=== PATIENT | female | born 1970 | race Caucasian/White ===

== ENCOUNTER 2018-12-27 18:51 | Inpatient (IN) | payer OTHER ==
[~2018-12-27] VITALS: Ht 170.2 cm; Wt 171.9 kg
[2018-12-27 18:53] VITALS: BP 165/97
[2018-12-27 20:29] LABS: ABSOLUTE NEUTROPHILS 7.4 thou/uL (1.4-8.2); BASOPHILS 0.6 % (0.0-2.0); EOSINOPHILS 0.9 % (0.0-3.0); HEMATOCRIT 37.1 % (37.0-47.0); HEMOGLOBIN 12.1 gm/dL (12.0-15.0); MCH 28.6 pg (26.0-34.0); MCHC 32.7 g/dL (28.0-37.0); MCV 87.5 fL (80.0-100.0); PLATELET COUNT 260 thou/uL (150-400); POLYS 83.5 % (36.0-66.0); RBC 4.23 mil/uL (4.20-5.00); RDW 16.3 % (10.5-14.5); WBC 8.8 thou/uL (4.0-11.0)
[2018-12-27] MEDS ORDERED: ENTRESTO 49 MG1 EACH PO (20:43)
[2018-12-27 20:44] LABS: CALCIUM 9.4 mg/dL (8.5-10.1); INR 1.2; POTASSIUM 3.7 mmol/L (3.5-5.1); PROTIME 12.7 Seconds (9.3-11.4)
[2018-12-27] MEDS ORDERED: ASPIR 8181 MG PO (20:44)
[2018-12-27] MEDS ORDERED: LASIX 80 MG TAB80 MG PO (20:44)
[2018-12-27] MEDS ORDERED: DIUREX MAX50 MG PO (20:44)
[2018-12-27] MEDS ORDERED: TRAZODONE HCL50 MG PO (20:45)
[2018-12-27 20:46] LABS: TROPONIN-I 0.06 ng/mL (<0.06)
[2018-12-27] MEDS ORDERED: AMITRIPTYLINE H25 M2 PO (20:47)
[2018-12-27] MEDS ORDERED: SPIRONOLACTONE25 M1 PO (20:48)
[2018-12-27] MEDS ORDERED: PAXIL10 MG PO (20:49)
[2018-12-27] MEDS ORDERED: LOPRESSOR25 PO (20:49)
[2018-12-27] MEDS ORDERED: FLEXERIL PO (20:49)
[2018-12-27] MEDS ORDERED: BENADRYL25 MG PO (20:50)
[2018-12-27] MEDS ORDERED: COUMADIN 5 MG TA5 M1 PO (20:50)
[2018-12-27] MEDS ORDERED: UNICOMPLEX M TA1 TA1 PO (20:50)
[2018-12-27 21:18] LABS: PCO2 51.8 mmHg (35.0-45.0); pH 7.373 (7.360-7.450)
[2018-12-27 21:19] LABS: BE(vivo) 3.2 mmol/L (-2 to +3); HCO3 29.5 mmol/L (22.0-26.0); PO2 71.9 mmHg (80.0-100.0)
[2018-12-27 21:20] LABS: sO2 93.9 % (92.0-98.0)
[2018-12-27 22:11] VITALS: BP 158/98
[2018-12-27 22:33] VITALS: BP 149/102
[2018-12-27 23:45] VITALS: BP 146/79
--- NOTE | 2018-12-28 00:45 | NUR ---
PATIENT WAS A NEW ADMISSION TO THE UNIT THIS SHIFT. SHE ARRIVED VIA CART FROM THE ER AND WAS TRANSFERRED TO BED WITHOUT INCIDENT. PATIENT IS ALERT AND ORIENTED AND WILL BE ABLE TO PARTICIPATE IN ADMISSION AND CALL APPROPRIATELY FOR NEEDS. NURSE TO COMPLETE ADMISSION AND INITIATE CARE PLAN.
[2018-12-28 04:41] VITALS: BP 156/108
[2018-12-28 04:51] LABS: INR 1.2; PROTIME 12.8 Seconds (9.3-11.4)
[2018-12-28 04:58] VITALS: BP 137/76
[2018-12-28 05:24] LABS: CALCIUM 9.7 mg/dL (8.5-10.1); CHOLESTEROL 137 mg/dL (<200); CREATININE 1.1 mg/dL (0.6-1.0); HDL CHOLESTEROL 49 mg/dL (>40); LDL CHOLESTEROL 75 mg/dL (<100); POTASSIUM 3.3 mmol/L (3.5-5.1); TC:HDL 2.8 Ratio (Not establshd); TRIGLYCERIDE 69 mg/dL (<150); TROPONIN-I 0.06 ng/mL (<0.06); VLDL 14 mg/dL (<40)
[2018-12-28 05:38] LABS: SERUM ASSESSMENT Clear
[2018-12-28 08:02] VITALS: BP 154/96
--- NOTE | 2018-12-28 09:33 | 2DMMODE ---
[facility] [address] [place] [address] 2 D/M-MODE ECHOCARDIOGRAM Name: GERBER BASILIO Room #: 363-P [facility] IN ..#: [id number] Admission: 12/27/18 Attend Phys: Dino Artis MD Discharge: Date of : 74 Date of Service: 12/28/18 0932 Report #: [id number] THIS REPORT FOR: //name// APPROVED REPORT Study performed: 12/28/2018 08:00:15 EXAM: Comprehensive 2D, Doppler, and color-flow Echocardiogram Patient Location: Bedside Room #: 363 Status: routine BSA: 2.65 BP: 137/76 mmHg Other Information Study Quality: Technically Difficult Technically limited study due to body habitus, inability to position patient. Indications Congestive Heart Failure COPD Hypertension/HDD Current tobacco abuse Echo Enhancing Agent Indication: Endocardial border delineation Agent(s) / Amount(s) Used: Optison 3 cc 2D Dimensions RVDd: 55.15 mm IVSd: 11.34 (7-11mm) LVOT Diam: 22.47 (18-24mm) LVDd: 57.93 mm PWd: 13.28 (7-11mm) Ascending Ao: 29.67 (22-36mm) LVDs: 53.59 (25-40mm) Aortic Root: 30.90 mm IVC: 36.00 mm Volumes Left Atrial Volume (Systole) Single Plane 4CH: 91.52 mL Single Plane 2CH: 83.81 mL LA ESV Index: 35.00 mL/m2 Aortic Valve AoV Peak Pawel.: 1.31 m/s [facility] [address] [place] [address] 2 D/M-MODE ECHOCARDIOGRAM Name: GERBER BASILIO Room #: 363-P [facility] IN [facility]#: [id number] Admission: 12/27/18 Attend Phys: Dino Artis MD Discharge: Date of : 74 Date of Service: 12/28/18 0932 Report #: [id number] AO Peak Gr.: 7.23 mmHg LVOT Max P.56 mmHg LVOT Max V: 0.80 m/s PAT Vmax: 2.42 cm2 Mitral Valve E/A Ratio: 2.6 MV Decel. Time: 111.39 ms MV E Max Pawel.: 1.40 m/s MV A Pawel.: 0.53 m/s MV PHT: 32.30 ms IVRT: 83.04 ms Pulmonary Valve PV Peak Pawel.: 0.98 m/s PV Peak Gr.: 3.83 mmHg Tricuspid Valve TR Peak Pawel.: 3.14 m/s RAP Estimate: 15.00 mmHg TR Peak Gr.: 39.49 mmHg PA Pressure: 55.00 mmHg Left Ventricle Left ventricle is mildly dilated. Mild concentric left ventricular hypertrophy. Left ventricular ejection fraction is severely decreased. LVEF is 20-25%. Transmitral Doppler flow pattern suggests restrictive physiology. Right Ventricle Right ventricle is moderately dilated. Right ventricular systolic function is grossly normal. Atria Left atrium is mildly dilated. Right atrium is moderately dilated. Aortic Valve Aortic valve appears grossly normal. No aortic regurgitation is present. There is no aortic valvular stenosis. Mitral Valve Mild mitral annular calcification. Mild mitral regurgitation. No evidence of mitral valve stenosis. Tricuspid Valve The tricuspid valve is normal in structure. Moderate tricuspid regurgitation. PAP is estimated at 55 mmHg. [facility] [email or web address] [address] 2 D/M-MODE ECHOCARDIOGRAM Name: GERBER BASILIO Room #: 363-P [facility] IN .R.#: [id number] Admission: 12/27/18 Attend Phys: Dino Artis MD Discharge: Date of : 74 Date of Service: 12/28/18 0932 Report #: [id number] Pulmonic Valve Pulmonic valve is not well visualized. Mild pulmonic regurgitation visualized. Great Vessels The aortic root is normal in size. IVC is dilated and collapses <50% with inspiration. Pericardium There is no pericardial effusion. <Conclusion> Technically limited study Left ventricular ejection fraction is severely decreased. LVEF is 20-25%. Both atria are dilated. Aortic valve appears grossly normal. No aortic regurgitation or stenosis. Mild mitral annular calcification. Mild mitral regurgitation. Moderate tricuspid regurgitation. Pulmonary artery pressure estimated at 55 mmHg. There is no pericardial effusion. <ELECTRONICALLY SIGNED> By: Cedric Thibodeaux MD, FAC 12/28/18931 1 1 Cedric Thibodeaux MD, FACC /INF
--- NOTE | 2018-12-28 10:52 | NUR ---
RD consult received for obesity. BMI 59=extreme class III obesity. Admit with CHF/COPD exacerbation. + tobacco use, no diabetes however prediabetes indicated and possible need to check A1C. On diuretic therapy, heart healthy restricted diet with fluid restriction. Addressed importance of Na restriction. Pt states does not use salt, however suspect using added sources of sodium. Pt not wanting to discuss diet but stated to leave information for her kids as they do cooking. Pt sitting at bedside, did not want to move to even get back into bed to order meals. States difficulty with mobility at home due to shortness of breath. Low nutrition risk
--- NOTE | 2018-12-28 11:33 | NUR ---
saul faxed facesheet to [facility] and called and left for Linda letting her know fs was faxed.
--- NOTE | 2018-12-28 14:35 | NUR ---
INITIAL ASSESSMENT: Received consult for discharge planning. BEKA reviewed chart and spoke with nursing and attending physician. Pt was admitted from home due to CHF exacerbation/hypoxemia. Pt with hx of COPD, HTN, cardiomyopathy. Pt with BLE edema. Pt listed as patient pay. [employer] account service representative onsite today to meet with pt. Pt's disability and [place] at the end of November. Pt will need to have insurance re-instated. BEKA met with pt at bedside. Introduced role of SW. Pt is alert/orientated x 4. Pt reports she lives at home with family. Pt has two children: ages 26 and 23. Pt and family live in a one-level home. One step to enter. They just recently moved to from [place] on 12/22. Pt states her roller walker is in storage. Pt is on 3L continuous O2 at home. Pt uses [employer]. Pt has not notified [facility] of her moving and she does not have a PCP. Pt states her plan is to return home. BEKA faxed face sheet to [facility] to notify of pt's move and new address. PT/OT ordered to evaluate pt for discharge needs. BEKA is following to assist as needed with discharge planning.
[2018-12-28] MEDS ORDERED: SPIRIVA INH (14:47)
[2018-12-28] MEDS ORDERED: IPRAT-ALBUT 0.5-3 ML (14:52)
[2018-12-28 15:57] VITALS: BP 146/93
[2018-12-28 19:35] VITALS: BP 137/88
[2018-12-29 04:22] VITALS: BP 133/74
[2018-12-29 05:31] LABS: INR 1.3; PROTIME 13.3 Seconds (9.3-11.4)
[2018-12-29 05:43] LABS: CALCIUM 9.3 mg/dL (8.5-10.1); POTASSIUM 3.8 mmol/L (3.5-5.1)
--- NOTE | 2018-12-29 07:32 | NUR ---
PATIENT IS PROGRESSING SLOWLY IN HER CARE PLAN. VITAL SIGNS STABLE WITH PATIENT HAVING NO COMPLAINTS OF PAIN OR NAUSEA. PATIENT DID COMPLAIN OF CRAMPING WHICH WAS EFFECTIVELY TREATED WITH MEDICATION AND POSITIONING. FULLY ORIENTED, PATIENT IS ABLE TO CALL APPROPRIATELY FOR NEEDS BUT IS OFTEN NON COMPLIANT WITH CARE PLAN. MULTIPLE REQUESTS FOR FLUIDS OVER HER ALLOTTED RESTRICTION. BREATHING STABLE ON OXYGEN EVIDENCED BY ASSESSMENT AND SPOT OXYGENATION CHECKS. UP MULTIPLE TIMES TO BEDSIDE COMMODE WITH ASSISTANCE INCIDENT FREE. CONTINUE PLAN OF CARE.
[2018-12-29 07:38] VITALS: BP 151/85
--- NOTE | 2018-12-29 11:13 | HC ---
[facility] [place] [address] [place] [address] CONSULTATION Name: GERBER BASILIO Room #: 363-P ADM IN M.R.#: [id number] Admission: 12/27/18 Attend Phys: Dino Artis MD Discharge: Date of : 74 Report #: [id number] THIS REPORT FOR: //name// CC: Dino Artis [facility] physician/PCP PULMONARY CONSULTATION REFERRING PHYSICIAN: Dr. Artis. REASON FOR REFERRAL: Dyspnea, hypoxia. HISTORY OF PRESENT ILLNESS: The patient is a 48-year-old white female who presents to the ED with progressive dyspnea. She was found to be hypoxic. A pulmonary consultation was requested. The patient is originally from [place], [place]. She has known history of cardiomyopathy, COPD with oxygen dependent, hypertension and past history of CVA. She was in her usual state of health until for the past few days, she has noticed increasing lower extremity edema and dyspnea. She complained of chest discomfort as an elephant sitting on her chest. Chest pain radiated to the upper back. She notes that his lower extremity edema started about a week ago. Otherwise, denies any recent febrile illness, sore throat, productive cough, nausea, vomiting, diarrhea. PAST MEDICAL HISTORY: As mentioned above including history of heart disease, not specified, hypertension, questionable history of DVT, CVA with questionable thrombus. PAST SURGICAL HISTORY: Status post bilateral tubal ligation, hysterectomy. ALLERGIES: PENICILLIN, WHICH CAUSES HIVES. SHE IS ALSO ALLERGIC TO BEE STINGS, HONEY, BROCCOLI, CAULIFLOWER, DUST. HOME MEDICATIONS: List reviewed, this includes Elavil 25 mg once a day, Entresto 49 mg/51 mg once a day, Lasix 80 mg once a day, aspirin 81 mg once a day, Diurex 50 mg once a day, trazodone 50 mg once a day, spironolactone 25 mg once a day, Paxil 40 mg once a day, Lopressor 25 mg p.o. b.i.d., Benadryl 25 mg p.o. p.r.n., multivitamins once a day, Coumadin 5 mg once a day. FAMILY HISTORY: Notable for diabetes, heart disease, vascular disease. Mother at the age of 42 due to myocardial infarction along with CVA. SOCIAL HISTORY: She does smoke about a pack a day. She denies any alcohol abuse. [address] [address] CONSULTATION Name: GERBER BASILIO Room #: 363-P [facility] IN ..#: [id number] Admission: 12/27/18 Attend Phys: Dino Artis MD Discharge: Date of : 74 Report #: [id number] REVIEW OF SYSTEMS: As mentioned above, otherwise a 10-point system review negative. She states that she was evaluated for sleep apnea, though the test was nonconclusive a few years ago. PHYSICAL EXAMINATION: GENERAL: She is awake, alert, appears mild to moderately dyspneic. VITAL SIGNS: Temperature is 97.7 degrees Fahrenheit, pulse is 93, respiratory rate is 20, blood pressure 146/93 mmHg, saturation is 99%. HEENT: Normocephalic, atraumatic. NECK: Supple, without lymphadenopathy or thyromegaly. CHEST: Breath sounds are fair with a few scattered crackles in the bases. No obvious wheezes. CARDIOVASCULAR: Normal S1, S2. No murmurs or gallop. There is no JVD. There is no carotid bruit. Pulses are 2+/4+ bilaterally. BREASTS: Deferred. ABDOMEN: Moderately obese, soft, nontender, no organomegaly or masses felt. GENITOURINARY: Deferred. RECTAL: Deferred. EXTREMITIES: With 2-3+ bilateral pretibial edema, mild erythematous changes are noted in the lower extremities. NEUROLOGIC: Grossly intact. LABORATORY DATA: Portable chest x-ray shows cardiomegaly, mild increase in pulmonary vascular markings. Echocardiogram shows ejection fraction of 20-25%, pulmonary artery pressure measuring 55 mmHg, mild mitral regurgitation, both atria are dilated. BNP is 7500. Electrolytes are normal, creatinine is 1.0. WBC is 8800, hemoglobin is normal. Troponin 0.06. Arterial blood gas revealed pH 7.37, pCO2 of 51 and pO2 of 71 on 3 liters of O2. IMPRESSION: 1. Soxay-er-rueahat hypercapnic hypoxic respiratory failure in this 48-year-old white female. She has had increasing edema over the past week with increasing dyspnea. Echocardiogram showed ejection fraction approximately 20%. Etiology probably related to underlying acute on chronic systolic heart failure with underlying chronic obstructive pulmonary disease. 2. Chronic obstructive pulmonary disease, severity not defined, continuing to smoke. 3. Hypertension. 4. Questionable history of deep venous thrombosis along with questionable history of cerebrovascular accident, had been on chronic anticoagulation. There is also history of possible cardiac thrombus. 5. Medical noncompliance. RECOMMENDATION: Agree with current care, bronchodilators, corticosteroids, agree with diuresis. Wean O2 for saturation 90%. The patient will benefit from outpatient sleep study evaluation. [address] [address] CONSULTATION Name: GERBER BASILIO Room #: 363-P ADM IN .R.#: [id number] Admission: 12/27/18 Attend Phys: Dino Artis MD Discharge: Date of : 74 Report #: [id number] DVT and GI prophylaxis recommended. Thank you for the consultation. <ELECTRONICALLY SIGNED> By: Yan Singh MD 12/29/18 1113 [id number] [id number] Yan Singh MD /nt
[2018-12-29 12:00] VITALS: BP 130/79
--- NOTE | 2018-12-29 15:25 | NUR ---
BEKA reviewed chart and spoke with nursing and attending physician. Pt is slowly progressing towards goals for discharge. Pt remains on IV lasix and IV steroids. Therapy evaluated pt. Plan is for pt to discharge home when medically stable. BEKA discussed case with [employer], who states that pt will have to pay privately for home O2 until her insurance is re-instated. Pt had [place]icaid. BEKA notified [facility] liaison. No weekend discharge planned. BEKA is following to assist as needed with discharge planning.
[2018-12-29 16:27] VITALS: BP 99/69
--- NOTE | 2018-12-29 17:57 | EKG ---
[address] [address] ELECTROCARDIOGRAM REPORT Name: GERBER BASILIO Room #: 363-P ADM IN M.R.#: [id number] Admission: 12/27/18 Attend Phys: Dino Artis MD Discharge: Date of : 74 Report #: [id number] THIS REPORT FOR: //name// [facility] ED Test Date: 2018-12-27 Test Time: 20:35:09 Pat Name: GERBER BASILIO Department: Room: 363 Gender: F Swimming Pool Service Technician: rowdy : 1970 Requested By: Maury Montilla Order Number: [id number] MD: Cedric Thibodeaux Measurements Intervals [place] Rate: 103 P: 51 MT: 170 QRS: -2 QRSD: 126 T: QT: 365 QTc: 478 Interpretive Statements Sinus tachycardia Ventricular premature complex Probable left atrial enlargement Nonspecific intraventricular conduction delay Poor R wave progression No previous ECG available for comparison Electronically Signed On 12-29-2018 17:56:56 CDT by Cedric Thibodeaux [email or web address] <ELECTRONICALLY SIGNED> By: Cedric Thibodeaux MD, [facility] 12/29/18 1756 34 Cedric Thibodeaux MD, FACC /EPI
[2018-12-29 19:09] VITALS: BP 113/80; BP 13/80
--- NOTE | 2018-12-30 03:06 | NUR ---
patient is alert and oriented. patient is up time one with walker and oxygen. patient is on 3l nc. patient uses bsc. patient is nsr on tele. patient is fluid restriction 1500ml. patient is achs accucheck patients lbm was the 16th. patient denies pain. patient had a shower this shift. patient is resting comfortably in bed. wcm. patient slept in chair most of night. patient is progressing to goals.
[2018-12-30 03:31] VITALS: BP 114/77
[2018-12-30 05:38] LABS: INR 1.3
[2018-12-30 05:43] LABS: CALCIUM 9.2 mg/dL (8.5-10.1); CREATININE 1.1 mg/dL (0.6-1.0)
[2018-12-30 05:49] LABS: POTASSIUM 4.8 mmol/L (3.5-5.1)
[2018-12-30 07:26] VITALS: BP 114/74
[2018-12-30 12:05] VITALS: BP 116/56
[2018-12-30 16:18] VITALS: BP 133/83
[2018-12-30 19:05] VITALS: BP 117/76
--- NOTE | 2018-12-30 19:40 | NUR ---
ASSUMED PATIENT CARE AT 0700. A/O X4. ASSISTED TO BSC. NO DISDRESS NOTED. SLOWLY TOWARDS POC GOALS.
--- NOTE | 2018-12-31 03:19 | NUR ---
ASSUMED PT CARE AROUND 1900. A&OX4. C/O CHRONIC LOW BACK PAIN. PT SLEPT IN CHAIR DURING THE NIGHT. RESP EVEN AND UNLABORED. UP W/ ASSIST TO BSC. TOLERATED WELL. NO MAJOR COMPLAINTS THIS SHIFT. FALL PRECAUTIONS IN PLACE. PROGRESSING TOWARD POC GOALS. WILL CONTINUE TO MONITOR FURTHER.
[2018-12-31 03:47] VITALS: BP 111/70
[2018-12-31 05:21] LABS: CALCIUM 9.2 mg/dL (8.5-10.1); CREATININE 1.3 mg/dL (0.6-1.0); MAGNESIUM 1.9 mg/dL (1.8-2.4)
[2018-12-31 05:28] LABS: INR 1.5; PROTIME 16.1 Seconds (9.3-11.4)
[2018-12-31 08:11] VITALS: BP 129/79
[2018-12-31 11:44] VITALS: BP 102/65
[2018-12-31 15:20] VITALS: BP 129/79
[2018-12-31 19:40] VITALS: BP 149/69
--- NOTE | 2019-01-01 03:30 | NUR ---
ASSUMED PT CARE AROUND 1900. A&OX4, FORGETFUL. C/O CHRONIC BACK PAIN. PT SLEPT IN CHAIR DURING THE NIGHT. UP W/ ASSIST TO BSC. PT STATES HER BREATHING FEELS BETTER. NO MAJOR COMPLAINTS THIS SHIFT. FALL PRECAUTIONS IN PLACE. PROGRESSING TOWARD POC GOALS. WILL CONTINUE TO MONITOR FURTHER.
[2019-01-01 04:30] VITALS: BP 100/53
[2019-01-01 06:03] LABS: CALCIUM 9.6 mg/dL (8.5-10.1); CREATININE 1.3 mg/dL (0.6-1.0); POTASSIUM 4.3 mmol/L (3.5-5.1)
[2019-01-01 08:05] VITALS: BP 109/71
[2019-01-01] MEDS ORDERED: PREDNISONE 10 M10 MG PO (08:27)
[2019-01-01] MEDS ORDERED: COZAAR 50 MG TA50 M1 PO (08:27)
[2019-01-01] MEDS ORDERED: LOPRESSOR25 PO (08:43)
[2019-01-01] MEDS ORDERED: AMITRIPTYLINE H25 M2 PO (08:43)
[2019-01-01] MEDS ORDERED: SPIRONOLACTONE25 M1 PO (08:43)
[2019-01-01] MEDS ORDERED: PAXIL10 MG PO (08:43)
[2019-01-01] MEDS ORDERED: FLEXERIL PO (08:47)
[2019-01-01] MEDS ORDERED: SPIRIVA INH (08:47)
[2019-01-01] MEDS ORDERED: COUMADIN 5 MG TA5 M1 PO (08:47)
[2019-01-01 11:19] VITALS: BP 118/64
--- NOTE | 2019-01-01 11:51 | NUR ---
DISCHARGE PLANNING. ANTICIPATED DISCAHRGE TO HOME, POSSIBLY TODAY. PATIENT WILL NEED OXYGEN FOR HOME. PATIENT DOES NOT HAVE A PROVIDER AT THIS TIME. REFERRAL FAXED TO [facility], FOR [employer]OVERAGE AND/OR BILLING [facility] FOR OXYGEN NEEDS. JOANN TO BEGIN PROCESS THROUGH [employer]S CORPORATE OFFICE. PROCESS TAKES 48-72 HOURS TO COMPLETE. JOANN TO NOTIFY CM ONCE PROCESS COMPLETED. UNIT SW AWARE. FOLLOWING TO ASSIST WITH DISCHARGE NEEDS.
--- NOTE | 2019-01-01 12:20 | NUR ---
BEKA reviewed chart and spoke with nursing and attending physician. Pt is medically stable for discharge home today. Orders written for HH. BEKA explained to physician that pt does not have health insurance. Pt is on continuous O2 as well. Pt has multiple new prescriptions as well, as pt has run out of her medications. BEKA contacted [facility]. [facility] rep has not yet met with pt. BEKA discussed with Director of Case Mgmt and [facility]. Awaiting timeframe of [facility]'s arrival. [facility] contacted to see if they would be able to provide O2 as gunnar or to bill Case Mgmt Dept. This would have to be approved by [facility] corporate office, which could take up to 48-72 hours. Rest/exercise oximetry ordered to evaluate pt. BEKA is following to assist as needed with discharge planning.
[2019-01-01 18:41] VITALS: BP 118/64
--- NOTE | 2019-01-01 19:27 | NUR ---
SHE WILL BE DISCHARGED AT THIS TIME GO HOME. HE HAS BEEN EDUCATED ON MEDS, AND NEED TO MAKE APPT TO SEE A PRIMARY CARE DOCTOR IN [place] AND ALSO A CARDIOLOGY WHOM HE CAN F/U WITH. SHE WAS GIVEN ALL HER MEDS REFILS EXCEPT OVER THE COUNTER. ASSISTED TO PARKING WHERE SHE DROVE OFF IN PRIVATE CAR.
== END 2019-01-01 19:32 | disposition home or self-care (01) | DRG 291 ==
LOC: ER 18:51 → 3W 22:04 → EROBS 22:04 → 3W 23:31
PROVIDERS: Emergency Medicine; Internal Medicine; Internal Medicine Pulmonary Disease; Nurse Practitioner; Nurse Practitioner Family; ADMIT Hospitalist
DX: I11.0 Hypertensive heart disease with heart failure (principal); J96.21 Acute and chronic respiratory failure with hypoxia; J96.22 Acute and chronic respiratory failure with hypercapnia; Z68.43 Body mass index [BMI] 50.0-59.9, adult; J44.1 Chronic obstructive pulmonary disease with (acute) exacerbation; I42.9 Cardiomyopathy, unspecified; I50.23 Acute on chronic systolic (congestive) heart failure; G25.81 Restless legs syndrome; F32.9 Major depressive disorder, single episode, unspecified; F41.0 Panic disorder [episodic paroxysmal anxiety]; G47.00 Insomnia, unspecified; E87.6 Hypokalemia; R79.89 Other specified abnormal findings of blood chemistry; F17.210 Nicotine dependence, cigarettes, uncomplicated; E66.01 Morbid (severe) obesity due to excess calories; Z86.73 Personal history of transient ischemic attack (TIA), and cerebral infarction without residual deficits; Z99.81 Dependence on supplemental oxygen; Z90.710 Acquired absence of both cervix and uterus; Z86.718 Personal history of other venous thrombosis and embolism; Z79.01 Long term (current) use of anticoagulants; Z79.82 Long term (current) use of aspirin; Z79.899 Other long term (current) drug therapy; Z91.030 Bee allergy status; Z88.0 Allergy status to penicillin; Z91.14 Patient's other noncompliance with medication regimen; Z91.018 Allergy to other foods; Z83.3 Family history of diabetes mellitus; Z82.49 Family history of ischemic heart disease and other diseases of the circulatory system; Z82.3 Family history of stroke
CPT/HCPCS: 10879